=== PATIENT | female | born 1935 | race Caucasian/White ===

== ENCOUNTER 2017-01-14 07:27 | Inpatient (IN) ==
[2017-01-14] MEDS ORDERED: ONDANSETRON ODT 4 MG TABLET SL ONE (08:08)
[2017-01-14] MEDS ORDERED: LACTATED RINGERS 1,000 ML IV ONE (08:08)
--- NOTE | 2017-01-14 08:44 | Emergency Department Note ---
Nausea/Vomiting/Diarrhea HPI - General Chief complaint: Nausea/Vomiting/Diarrhea Stated complaint: Diarrhea, nausea Time Seen by Provider: 01/14/17 08:40 Source: EMS Mode of arrival: EMS Limitations: no limitations - History of Present Illness HPI Narrative: This very pleasant 81-year-old female comes to the emergency room with primary complaint of diarrhea for a day. She took some orange juice yesterday and blames it somewhat on this and then taking her blood pressure medicine afterwards. It was sudden in onset. She has had 6-8 episodes. She has had some incontinence because of this including even darkening her panty liners which she uses chronically because of urinary incontinence. She took 3- 4 tablets of Pepto-Bismol yesterday this has caused darkness to her stools. She also took 1 tablespoon of Kaopectate last night which allowed her to be able to take her medications and for them hopefully not to go straight through her. She has occasional chills but no fevers. She has some nausea with this and some mild right upper quadrant abdominal discomfort. This was not obvious to her until examination and it was mild. - Related Data Home Medications Medication Instructions Recorded Confirmed Atenolol [Tenormin] 25 mg PO DAILY 06/19/15 12/29/16 Losartan Potassium [Cozaar] 100 mg PO DAILY 06/19/15 12/29/16 cloNIDine HCL [Kapvay] 0.1 mg PO BID 06/19/15 12/29/16 metFORMIN [Glucophage] 500 mg PO DAILY 08/13/15 12/29/16 blood sugar diagnostic strips See Dose Instructions .ROUTE 12/28/16 12/29/16 .MEDSUPPLY #20 each clorazepate dipotassium 3.75 mg 3.75 mg PO BID PRN tab 12/28/16 12/29/16 tablet lancets See Dose Instructions .ROUTE 12/28/16 12/29/16 .MEDSUPPLY #50 each pantoprazole 20 mg tablet,delayed 20 mg PO QDAY 12/28/16 12/29/16 release acetaminophen 325 mg tablet 325 mg PO .COMPLEX PRN tab 12/29/16 12/29/16 folic acid See Label Instructions PO QDAY 12/29/16 12/29/16 Allergies Allergy/AdvReac Type Severity Reaction Status Date / Time ciprofloxacin [From Cipro] Allergy Intermediate Diarrhea Verified 01/14/17 07:30 codeine Allergy Intermediate unknown Verified 01/14/17 07:30 Erythromycin Base Allergy Intermediate Diarrhea Verified 01/14/17 07:30 Neomycin Allergy Intermediate Diarrhea Verified 01/14/17 07:30 nitrofurantoin Allergy Intermediate Diarrhea Verified 01/14/17 07:30 Penicillins Allergy Intermediate Diarrhea Verified 01/14/17 07:30 Sulfa (Sulfonamide Allergy Intermediate Diarrhea Verified 01/14/17 07:30 Antibiotics) amlodipine Allergy Unknown Unknown Verified 01/14/17 07:30 Cortisone Allergy Unknown Unknown Verified 01/14/17 07:30 iodine Allergy Unknown Unknown Verified 01/14/17 07:30 lisinopril Allergy Unknown Unknown Verified 01/14/17 07:30 atorvastatin [From Lipitor] AdvReac Intermediate muscle Verified 01/14/17 07:30 cramps simvastatin AdvReac Intermediate muscle Verified 01/14/17 07:30 cramps Review of Systems Constitutional: Reports: as per HPI. Denies: fever, sweats ENT ED: Reports: other (Has become a little hoarse and she states that this is due to the possible side effect of her clonidine.) Cardiovascular: Denies: chest pain, palpitations, edema Respiratory: Denies: cough, shortness of breath, wheezes Gastrointestinal: Reports: as per HPI, heart burn Genitourinary: Reports: frequency (This is chronic and normal for her.). Denies : dysuria Musculoskeletal: Reports: joint pain (In her arms from previous injuries and falls.). Denies: back pain Neurological: Reports: headache (Has a few headaches.), weakness, dizziness (A few times.), other (Sleepy from the clonidine. Also has become shaky. She normally uses a walker and/or a cane.) Past Medical History - Past Medical History Medical history: Reports: diabetes, GERD, hypertension, osteoporosis, other ( Peptic ulcer disease). 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 Absent: tenderness, lymphadenopathy, thyromegaly Respiratory: Present: normal lung sounds bilaterally. Absent: respiratory distress, wheezes, stridor Cardiovascular: Present: regular rate, normal rhythm. Absent: systolic murmur, diastolic murmur Abdominal: Present: soft, tenderness (Trace or very mild discomfort to palpation in the right upper quadrant.). Absent: distention, guarding, rebound , rigidity Extremities: Present: pretibial edema (Trace in amount.). Absent: pedal edema Neurological: Present: alert, oriented X3 Psychiatric: Present: normal affect, normal mood Skin: Present: warm, dry Course Vital Signs Temperature 98.3 F 01/14/17 07:29 Pulse Rate 73 01/14/17 07:29 Respiratory Rate 16 01/14/17 07:29 Blood Pressure 184/82 01/14/17 07:29 Pulse Oximetry (%) 94 01/14/17 07:29 Temperature 98.3 F 01/14/17 07:29 Pulse Rate 73 01/14/17 07:29 Respiratory Rate 16 01/14/17 07:29 Blood Pressure 184/82 01/14/17 07:29 Pulse Oximetry (%) 94 01/14/17 07:29 Nausea/Vomiting/Diarrhea - MDM Narrative Medical decision making narrative: At risk for some dehydration due to her poor oral intake from nausea and episodes of diarrhea. Probably acute infectious diarrhea or possibly mild food poisoning. Will do labs and ondansetron. Consider Imodium. She has no recent antibiotics or risk for C. difficile. Care transferred to Dr. Rodriguez - Lab Data Result diagrams: 01/14/17 08:18 01/14/17 08:18 Lab Results 01/14/17 01/14/17 Range/Units 08:18 08:18 WBC 7.9 (4.5-11.0) K/mcL RBC 5.26 H (4.00-5.20) M/mcL Hgb 14.9 (12.0-15.0) g/dL Hct 44.0 (36.0-48.0) % MCV 83.5 (80.0-100.0) fL MCH 28.2 (26.0-34.0) pg MCHC 33.8 (31.0-36.0) g/dL RDW 15.4 H (11.5-14.5) % Plt Count 194 (140-440) K/mcL MPV 8.2 (7.4-10.4) fL Gran % 79.0 H (38.0-78.0) % Lymph % (Auto) 10.9 L (15.5-49.0) % [place] % (Auto) 8.7 (1.0-12.0) % Eos % (Auto) 1.1 (0.0-7.0) % Baso % (Auto) 0.3 (0.0-2.0) % Gran # 6.3 (1.8-8.0) K/mcL Lymph # (Auto) 0.9 L (1.5-4.8) K/mcL [place] # (Auto) 0.7 (0.1-0.9) K/mcL Eos # (Auto) 0.1 (0.0-0.7) K/mcL Baso # (Auto) 0 (0.0-0.3) K/mcL Sodium 127 L (133-145) mmol/L Potassium 4.1 (3.3-5.1) mmol/L Chloride 89 L (96-108) mmol/L Carbon Dioxide 25 (22-30) mmol/L Anion Gap 13.0 (8-16) BUN 17 (8-23) mg/dl Creatinine 0.7 (0.6-1.1) mg/dl GFR Calculation 80 Glucose 146 H (70-105) mg/dL Calcium 9.8 (8.6-10.4) mg/dl Total Bilirubin 0.4 (0.0-1.0) mg/dL AST 27 (0-37) U/l ALT 17 (0-40) U/l Alkaline Phosphatase 85 (39-117) U/L C-Reactive Protein 0.6 (0.0-0.8) mg/dl Total Protein 8.1 (5.9-8.4) gm/dL Albumin 4.2 (3.2-5.2) gm/dL Globulin 3.9 H (2.2-3.7) gm/dL Albumin/Globulin Ratio 1.1 (1.0-2.3) Disposition Pt seen by FEATHERER/PA only: No Disposition: Still a Patient Referrals: Brenda Hardin MD [Primary Care Provider] -
[2017-01-14 09:13] LABS: Basophils # (Auto) 0 K/mcL (0.0-0.3); Basophils % (Auto) 0.3 % (0.0-2.0); Eosinophils # (Auto) 0.1 K/mcL (0.0-0.7); Eosinophils % (Auto) 1.1 % (0.0-7.0); Lymphocytes # (Auto) 0.9 K/mcL (1.5-4.8); Lymphocytes % (Auto) 10.9 % (15.5-49.0); Mean Cell Volume 83.5 fL (80.0-100.0); Mean Corpuscular HGB Conc 33.8 g/dL (31.0-36.0); Mean Corpuscular Hemoglobin 28.2 pg (26.0-34.0); Monocytes # (Auto) 0.7 K/mcL (0.1-0.9); Monocytes % (Auto) 8.7 % (1.0-12.0); Platelet Count 194 K/mcL (140-440); RBC 5.26 M/mcL (4.00-5.20); Red Cell Distribution Width 15.4 % (11.5-14.5)
[2017-01-14 09:37] LABS: ALT/SGPT 17 U/l (0-40); Albumin 4.2 gm/dL (3.2-5.2); Albumin/Globulin Ratio 1.1 (1.0-2.3); Alkaline Phosphatase 85 U/L (39-117); Blood Urea Nitrogen 17 mg/dl (8-23); C-Reactive Protein 0.6 mg/dl (0.0-0.8)
[2017-01-14] MEDS ORDERED: LOPERAMIDE 2 MG CAPSULE PO ONE (09:52)
[2017-01-14] MEDS ORDERED: PROCHLORPERAZINE 10 MG/2 ML VIAL IV ONE (10:40)
[2017-01-14] MEDS ORDERED: 0.9 % SODIUM CHLORIDE 1,000 ML IV SCH (10:45)
[2017-01-14] MEDS: LOPERAMIDE 2 MG CAPSULE PO PRN ×3 (10:46→12:19)
[2017-01-14] MEDS ORDERED: PROCHLORPERAZINE 10 MG/2 ML VIAL ONE (10:49)
[2017-01-14] MEDS ORDERED: LOPERAMIDE 2 MG CAPSULE PO PRN (11:21)
[2017-01-14] MEDS ORDERED: VANCOMYCIN ORAL SOL 1,000 MG/10 ML BOTTLE PO SCH (13:00)
[2017-01-14] MEDS ORDERED: VANCOMYCIN 250 MG CAPSULE PO SCH (13:00)
[2017-01-14] MEDS ORDERED: oxyCODONE HCL 5 MG TABLET PO PRN (14:07)
[2017-01-14] MEDS ORDERED: ALBUTEROL SULFATE 2.5 MG/3 ML NEBULIZER NEB PRN (14:07)
[2017-01-14] MEDS ORDERED: DEXTROSE 31 GM ORAL.SUSP PO PRN (14:07)
[2017-01-14] MEDS ORDERED: ONDANSETRON 4 MG/2 ML VIAL IV PRN (14:07)
[2017-01-14] MEDS ORDERED: CLORAZEPATE 3.75 MG TABLET PO PRN (14:07)
[2017-01-14] MEDS ORDERED: DEXTROSE 50% 50 ML VIAL IV PRN (14:07)
[2017-01-14] MEDS ORDERED: NALOXONE HCL 0.4 MG/ML VIAL IV PRN (14:07)
[2017-01-14] MEDS ORDERED: ACETAMINOPHEN 325 MG TABLET PO PRN (14:07)
[2017-01-14] MEDS: 0.9 % SODIUM CHLORIDE 10 ML SYRINGE IV SCH ×2 (14:30→22:49)
[2017-01-14] MEDS: 0.9 % SODIUM CHLORIDE 1,000 ML IV SCH (14:30)
--- NOTE | 2017-01-14 14:38 | Internal Med History&Physical ---
Medical - H&P: HPI Patient information: Note initiated : 01/14/17 at 2:32 pm Service Date, if different from initiated Date: [] Patient: Margy Teixeira 81 y/o F admitted on 01/14/17 for Diarrhea, nausea. Chief Complaint: [] History of present illness: Ms. Teixeira is a 81 year old Female who presents to the ER today with complaints of weakness, nausea, vomiting and diarrhea The patient notes she had UTI approximately 1 month ago and was on antibiotics for same She drank some orange juice yesterday and and started having cramps in the abdomen, associated with significant diarrhea, unable to quantify, she also had nausea all day yesterday and some vomiting today. She has had cramps in her abdomen and also in her legs. The patient was weak and therefore presented to the ER for further evaluation the patient denies any fever, chills or rigors, has chr headaches, no chest pain or shortness of breath, patient has no acute joint pains, skin rashes. admits to chr depression and anxiety no other acute issue preorted Pt is a poor history provider and, living by self for last 30 yrs, able to carry out ADL, has some memory issues but not significantly affecting life. In the ER the patient was stable, VSS, Labs showed low sodium and cl, had cdiff positive. Admitted to the hospital for further management All systems: reviewed and no additional remarkable complaints except as stated ( as per HPI) Medical - H&P: [facility] Medical history: Medical History (Last Updated 12/28/16 @ 07:49 by Erna Bhatt) Headache (Chronic) Blurred vision (Chronic) Metatarsalgia (Chronic) Hearing loss (Chronic) Allergic rhinitis (Chronic) Generalized anxiety disorder (Chronic) Osteoarthritis of right knee (Chronic) IBS (irritable bowel syndrome) (Chronic) Diverticular disease (Chronic) GERD (gastroesophageal reflux disease) (Chronic) Edema, lower extremity (Chronic) Hyperlipidemia, mixed (Chronic) Chronic hyponatremia (Chronic) Type 2 diabetes mellitus, controlled, with renal complications (Chronic) Increased frequency of urination (Chronic) Anxiety (Chronic) HTN (hypertension) (Chronic) Diverticulitis (Chronic) Contusion (Chronic) Dehydration (Chronic) Vertigo (Chronic) Hyponatremia (Chronic) Hypertension (Chronic) Acute anxiety (Chronic) Surgical history: Past Surgical History (Last Updated 12/28/16 @ 07:49 by Erna Bhatt) History of D&C (Chronic) History of appendectomy (Chronic) History of cholecystectomy (Chronic) History of tonsillectomy and adenoidectomy (Chronic) Pertinent family history: Family History (Last Updated 12/28/16 @ 08:03 by Erna Bhatt) Mother Diabetes Medical - H&P: Meds Home Medications Medication Instructions Recorded Confirmed Type Atenolol [Tenormin] 25 mg PO DAILY 06/19/15 01/14/17 History Losartan Potassium [Cozaar] 100 mg PO DAILY 06/19/15 01/14/17 History cloNIDine HCL [Kapvay] 0.1 mg PO BID 06/19/15 01/14/17 History metFORMIN [Glucophage] 500 mg PO DAILY 08/13/15 01/14/17 History blood sugar diagnostic strips See Dose Instructions .ROUTE 12/28/16 12/29/16 History .MEDSUPPLY #20 each clorazepate dipotassium 3.75 mg 3.75 mg PO BID PRN tab 12/28/16 01/14/17 History tablet lancets See Dose Instructions .ROUTE 12/28/16 12/29/16 History .MEDSUPPLY #50 each pantoprazole 20 mg tablet,delayed 20 mg PO QDAY 12/28/16 01/14/17 History release acetaminophen 325 mg tablet 325 mg PO .COMPLEX PRN tab 12/29/16 12/29/16 History folic acid 1 mg PO QDAY 12/29/16 01/14/17 History Allergies Allergy/AdvReac Type Severity Reaction Status Date / Time ciprofloxacin [From Cipro] Allergy Intermediate Diarrhea Verified 01/14/17 07:30 codeine Allergy Intermediate unknown Verified 01/14/17 07:30 Erythromycin Base Allergy Intermediate Diarrhea Verified 01/14/17 07:30 Neomycin Allergy Intermediate Diarrhea Verified 01/14/17 07:30 nitrofurantoin Allergy Intermediate Diarrhea Verified 01/14/17 07:30 Penicillins Allergy Intermediate Diarrhea Verified 01/14/17 07:30 Sulfa (Sulfonamide Allergy Intermediate Diarrhea Verified 01/14/17 07:30 Antibiotics) amlodipine Allergy Unknown Unknown Verified 01/14/17 07:30 Cortisone Allergy Unknown Unknown Verified 01/14/17 07:30 iodine Allergy Unknown Unknown Verified 01/14/17 07:30 lisinopril Allergy Unknown Unknown Verified 01/14/17 07:30 atorvastatin [From Lipitor] AdvReac Intermediate muscle Verified 01/14/17 07:30 cramps simvastatin AdvReac Intermediate muscle Verified 01/14/17 07:30 cramps Medical - H&P: Exam - Constitutional Vitals: Temp Pulse Resp BP Pulse Ox 98.3 F 76 16 159/72 94 01/14/17 07:29 01/14/17 11:47 01/14/17 07:29 01/14/17 11:47 01/14/17 11:47 Medical - H&P: Reslt - Labs CBC & Chem 7: 01/14/17 08:18 01/14/17 08:18 Labs: Short CBC 01/14/17 Range/Units 08:18 WBC 7.9 (4.5-11.0) K/mcL Hgb 14.9 (12.0-15.0) g/dL Hct 44.0 (36.0-48.0) % Plt Count 194 (140-440) K/mcL BMP 01/14/17 08:18 Sodium 127 L Potassium 4.1 Chloride 89 L Carbon Dioxide 25 BUN 17 Creatinine 0.7 Glucose 146 H Calcium 9.8 Liver Function 01/14/17 Range/Units 08:18 Total Bilirubin 0.4 (0.0-1.0) mg/dL AST 27 (0-37) U/l ALT 17 (0-40) U/l Alkaline Phosphatase 85 (39-117) U/L Albumin 4.2 (3.2-5.2) gm/dL Medical - H&P: A/P - Narrative A/P Narrative: A/P Acute Cdiff diarrhea HTN HLD Dehydration Nausea and Vomiting Diabetes Anxiety/ Depression Plan Admit to med surg IV fluids PO vancomyucin for cdiff hold off on loperamide, continue atenolol, hold other bp meds sliding scale insulin for now, hold oral meds for diabetes. prn zofran for nausea DVT hep Full code Social History - Social History marital status: occupational status: retired - Exercise physical activity: none - Tobacco smoking status: Never smoker - Alcohol alcohol intake frequency: does not drink - Substance use substance use type: does not use
[2017-01-14] MEDS: VANCOMYCIN ORAL SOL 1,000 MG/10 ML BOTTLE PO SCH ×2 (17:21→21:01)
[2017-01-14] MEDS: INSULIN LISPRO 1 UNIT/0.01 ML UNIT SQ SCH ×2 (17:23→21:00)
[2017-01-14] MEDS: cloNIDine HCL 0.1 MG TABLET PO SCH (21:00)
[2017-01-15] MEDS: 0.9 % SODIUM CHLORIDE 1,000 ML IV SCH ×3 (00:21→16:14)
[2017-01-15] MEDS: 0.9 % SODIUM CHLORIDE 10 ML SYRINGE IV SCH ×3 (05:05→21:48)
[2017-01-15 05:59] LABS: Basophils # (Auto) 0 K/mcL (0.0-0.3); Basophils % (Auto) 0.5 % (0.0-2.0); Eosinophils # (Auto) 0.1 K/mcL (0.0-0.7); Eosinophils % (Auto) 1.7 % (0.0-7.0); Granulocytes % (Auto) 61.7 % (38.0-78.0); Lymphocytes # (Auto) 1.4 K/mcL (1.5-4.8); Lymphocytes % (Auto) 22.3 % (15.5-49.0); Mean Cell Volume 84.6 fL (80.0-100.0); Mean Corpuscular HGB Conc 33.8 g/dL (31.0-36.0); Mean Corpuscular Hemoglobin 28.6 pg (26.0-34.0); Monocytes # (Auto) 0.9 K/mcL (0.1-0.9); Monocytes % (Auto) 13.8 % (1.0-12.0); Platelet Count 153 K/mcL (140-440); Red Cell Distribution Width 15.5 % (11.5-14.5)
[2017-01-15 06:17] LABS: ALT/SGPT 13 U/l (0-40); Albumin 3.2 gm/dL (3.2-5.2); Albumin/Globulin Ratio 1.1 (1.0-2.3); Alkaline Phosphatase 63 U/L (39-117); Bilirubin,Direct < 0.2 mg/dL (0.0-0.3); Blood Urea Nitrogen 13 mg/dl (8-23); Gamma Glutamyl Transpeptidase 14 U/L (5-36); Magnesium 1.6 mg/dL (1.6-2.5); Uric Acid 4.9 mg/dL (2.5-8.0)
[2017-01-15] MEDS ORDERED: MAGNESIUM SULFATE 2 GM/50 ML BAG IV ONE (07:09)
[2017-01-15] MEDS ORDERED: POTASSIUM CHLORIDE 40 MEQ in DEXTROSE 5% IN WATER 500 ML IV ONE (07:09)
[2017-01-15] MEDS: PANTOPRAZOLE 40 MG TABLET PO SCH (07:30)
[2017-01-15] MEDS: INSULIN LISPRO 1 UNIT/0.01 ML UNIT SQ SCH ×4 (07:32→21:48)
[2017-01-15] MEDS: ENOXAPARIN 40 MG/0.4 ML SYRINGE SQ SCH (09:58)
[2017-01-15] MEDS: VANCOMYCIN ORAL SOL 1,000 MG/10 ML BOTTLE PO SCH ×4 (09:58→20:29)
[2017-01-15] MEDS: FOLIC ACID 1 MG TABLET PO SCH (09:59)
[2017-01-15] MEDS: cloNIDine HCL 0.1 MG TABLET PO SCH ×2 (09:59→20:29)
[2017-01-15] MEDS: ATENOLOL 50 MG TABLET PO SCH (09:59)
[2017-01-15] MEDS ORDERED: PNEUMOCOCCAL 23-VAL P-SAC VAC 0.5 ML VIAL IM ONE (10:00)
--- NOTE | 2017-01-15 10:32 | Internal Med Progress Note ---
Medical - PN: Subj Patient information: Note initiated : 01/15/17 at 10:29 am Service Date, if different from initiated Date: [] Patient: Margy Teixeira 81 y/o F admitted on 01/14/17 for Diarrhea, nausea. Chief Complaint: [] Interval history: Ms. Teixeira is a 81 year old Female who presents to the ER today with complaints of weakness, nausea, vomiting and diarrhea The patient notes she had UTI approximately 1 month ago and was on antibiotics for same She drank some orange juice yesterday and and started having cramps in the abdomen, associated with significant diarrhea, unable to quantify, she also had nausea all day yesterday and some vomiting today. She has had cramps in her abdomen and also in her legs. The patient was weak and therefore presented to the ER for further evaluation the patient denies any fever, chills or rigors, has chr headaches, no chest pain or shortness of breath, patient has no acute joint pains, skin rashes. admits to chr depression and anxiety no other acute issue preorted Pt is a poor history provider and, living by self for last 30 yrs, able to carry out ADL, has some memory issues but not significantly affecting life. In the ER the patient was stable, VSS, Labs showed low sodium and cl, had cdiff positive. Admitted to the hospital for further management January 15 Patient seen examined doing well, no more nausea, vomiting or dairrhea, feels better, urine cx is positive for uti, started on rocehin, tolerating po well. Pertinent ROS: Denies headache, dizziness Denies chest pain, palpitations Denies cough or shortness of breath Denies abdominal pain, nausea or vomiting. - Constitutional Vitals: Vital Signs Temp Pulse Resp BP Pulse Ox 98.2 F 74 18 144/61 93 01/15/17 07:42 01/15/17 04:00 01/15/17 07:42 01/15/17 07:42 01/15/17 07:42 Period Temp Pulse Resp BP Sys/Cheng Pulse Ox Last 24 Hr 98.2 F-99.8 F 71-89 18-20 140-181/61-82 89-95 Intake and Output 01/14/17 01/15/17 01/15/17 21:59 05:59 13:59 Intake Total 120 / 120 1225 / 1225 Output Total 750 / 750 650 / 650 Balance -630 / -630 575 / 575 Weight 175 lb Intake & Output: Intake & Output 01/14/17 01/15/17 01/15/17 21:59 05:59 13:59 Intake Total 120 / 120 1225 / 1225 Output Total 750 / 750 650 / 650 Balance -630 / -630 575 / 575 Weight 175 lb Intake: IV 985 / 985 Sodium Chloride 0.9% 1,000 ml @ 985 / 985 100 mls/hr IV .Q10H NIRMALA Rx#: [id number] Oral 120 / 120 240 / 240 Output: Void Amount 750 / 750 650 / 650 Other: Meal Dinner Percent of Meal Consumed 50% Feeding Ability Assist with Tray Set Up # Voids 1 # Bowel Movements 1 Exam: Constitutional; Afebrile, cooperative, alert, not in distress. Eyes- No icterus, , No periorbital swelling Ears- Ext ear normal, hearing normal to conversation. Neck- Midline trachea, supple Respiratory system: Air Entry equal on both sides, No crackles or wheezing, no rhonchi. CVS- Rate rhythm regular, S1,S2 heard, no gallop, no rub. Abdomen- Soft nontender abdomen, no organomegaly, no tenderness, no guarding or rigidity, AREA COORDINATOR- AOOx3, moving all extremities, no gross focal deficit noted. Medical - PN: Obj Da - Labs CBC & Chem 7: 01/15/17 04:10 01/15/17 04:10 Labs: Abnormal Lab Results 01/15/17 01/15/17 01/14/17 04:10 04:10 08:18 RBC RDW 15.5 H Gran % Lymph % (Auto) [place] % (Auto) 13.8 H Lymph # (Auto) 1.4 L Sodium 127 L Chloride 89 L Glucose 146 H Calcium 8.0 L Phosphorus 2.1 L Globulin 3.9 H 01/14/17 08:18 RBC 5.26 H RDW 15.4 H Gran % 79.0 H Lymph % (Auto) 10.9 L [place] % (Auto) Lymph # (Auto) 0.9 L Sodium Chloride Glucose Calcium Phosphorus Globulin Meds: Medications Acetaminophen (Tylenol) 650 mg PO Q6HP PRN PRN Reason: PAIN/FEVER > 101 Albuterol Sulfate (Ventolin) 2.5 mg NEB Q2HP PRN PRN Reason: Shortness Of Breath Atenolol (Tenormin) 25 mg PO DAILY [facility] Last Admin: 01/15/17 09:59 Dose: 25 mg Ceftriaxone Sodium (Rocephin) 2 gm IV Q24H [facility] Clonidine HCl (Catapres) 0.1 mg PO BID [facility] Last Admin: 01/15/17 09:59 Dose: 0.1 mg Clorazepate Dipotassium (Tranxene) 3.75 mg PO BID PRN PRN Reason: Anxiety Dextrose (Dextrose 50%) 0 ml IV UD PRN PRN Reason: Hypoglycemia Diagnostic Test (Pha) (Accu-Chek) 1 each FS ACHS [facility] Last Admin: 01/15/17 07:31 Dose: 1 each Enoxaparin Sodium (Lovenox) 40 mg SQ DAILY [facility] Last Admin: 01/15/17 09:58 Dose: 40 mg Folic Acid (Folic Acid) 1 mg PO DAILY [facility] Last Admin: 01/15/17 09:59 Dose: 1 mg Glucose (Insta-Glucose) 15 gm PO PRN PRN PRN Reason: Hypoglycemia Sodium Chloride (Sodium Chloride 0.9%) 1,000 mls @ 100 mls/hr IV .Q10H [facility] Stop: 01/15/17 20:06 Last Admin: 01/15/17 00:21 Dose: 100 mls/hr Potassium Chloride 40 meq/ (Dextrose) 520 mls @ 130 mls/hr IV ONCE ONE Stop: 01/15/17 11:08 Last Admin: 01/15/17 08:16 Dose: 130 mls/hr Insulin Human Lispro (Humalog) 0 unit SQ [facility] PRN Reason: Protocol Last Admin: 01/15/17 07:32 Dose: Not Given Naloxone HCl (Narcan) 0.1 mg IV Q2MIN PRN PRN Reason: Opiate Reversal Ondansetron HCl (Zofran) 4 mg IV Q6HP PRN PRN Reason: Nausea And Vomiting Oxycodone HCl (Roxicodone) 5 mg PO Q4HP PRN PRN Reason: Pain Pantoprazole Sodium (Protonix) 40 mg PO QAMAC [facility] Last Admin: 01/15/17 07:30 Dose: 40 mg Sodium Chloride (Saline Flush) 10 ml IV Q8 [facility] Last Admin: 01/15/17 05:05 Dose: Not Given Vancomycin HCl (Vancomycin Oral Bette) 250 mg PO QID NIRMALA Last Admin: 01/15/17 09:58 Dose: 250 mg Medical - PN: A/P - Time Spent With Patient Total time spent is greater than 50% in coordination of care (as documented) at patient's floor/unit and/or counseling patient: - Narrative A/P Narrative: A/P Acute Cdiff diarrhea- improving Hyponatremia : due to dehyeration improving, continue gentlye hydrati UTI: on rocephin, await sensitivities HTN- resume home bp meds and see how she does. Dehydration/ Nausea and Vomiting- resolved. Diabetes: glucose ok on ssi Anxiety/ Depression tootie meds resumed. DVT hep Full code
[2017-01-15] MEDS: LOSARTAN 50 MG TABLET PO SCH (12:00)
[2017-01-15] MEDS: cefTRIAXone 2 GM VIAL IV SCH (12:00)
[2017-01-16 06:03] LABS: Basophils # (Auto) 0 K/mcL (0.0-0.3); Basophils % (Auto) 0.5 % (0.0-2.0); Eosinophils # (Auto) 0.1 K/mcL (0.0-0.7); Eosinophils % (Auto) 2.6 % (0.0-7.0); Granulocytes % (Auto) 57.7 % (38.0-78.0); Lymphocytes # (Auto) 1.5 K/mcL (1.5-4.8); Mean Corpuscular HGB Conc 33.5 g/dL (31.0-36.0); Mean Corpuscular Hemoglobin 28.5 pg (26.0-34.0); Monocytes # (Auto) 0.7 K/mcL (0.1-0.9); Monocytes % (Auto) 12.2 % (1.0-12.0); Platelet Count 166 K/mcL (140-440); RBC 4.55 M/mcL (4.00-5.20); Red Cell Distribution Width 15.9 % (11.5-14.5)
[2017-01-16 06:27] LABS: ALT/SGPT 15 U/l (0-40); Albumin 3.5 gm/dL (3.2-5.2); Albumin/Globulin Ratio 1.1 (1.0-2.3); Alkaline Phosphatase 73 U/L (39-117); Bilirubin,Direct < 0.2 mg/dL (0.0-0.3); Blood Urea Nitrogen 11 mg/dl (8-23); Gamma Glutamyl Transpeptidase 18 U/L (5-36); Uric Acid 3.8 mg/dL (2.5-8.0)
[2017-01-16] MEDS: 0.9 % SODIUM CHLORIDE 10 ML SYRINGE IV SCH ×2 (07:44→15:03)
[2017-01-16] MEDS: INSULIN LISPRO 1 UNIT/0.01 ML UNIT SQ SCH ×2 (07:44→11:53)
[2017-01-16] MEDS: PANTOPRAZOLE 40 MG TABLET PO SCH (07:44)
[2017-01-16] MEDS: LOSARTAN 50 MG TABLET PO SCH (09:39)
[2017-01-16] MEDS: ENOXAPARIN 40 MG/0.4 ML SYRINGE SQ SCH (09:39)
[2017-01-16] MEDS: ATENOLOL 50 MG TABLET PO SCH (09:40)
[2017-01-16] MEDS: cloNIDine HCL 0.1 MG TABLET PO SCH (09:40)
[2017-01-16] MEDS: FOLIC ACID 1 MG TABLET PO SCH (09:40)
[2017-01-16] MEDS: cefTRIAXone 2 GM VIAL IV SCH (10:42)
[2017-01-16] MEDS: VANCOMYCIN ORAL SOL 1,000 MG/10 ML BOTTLE PO SCH ×2 (10:42→14:23)
--- NOTE | 2017-01-16 10:57 | Discharge Summary ---
Medical - DS: Prov Patient information: Note initiated : 01/16/17 at 10:52 am Service Date, if different from initiated Date: [] Patient: Margy Teixeira 81 y/o F admitted on 01/14/17 for Diarrhea, nausea. Chief Complaint: [] Date of admission: 01/14/17 13:50 Discharge date: 01/16/17 Primary care physician: Brenda Hardin Admitting clinician: Anamaria Dinero Consults: 01/14/17 12:47 Consult to Physician [CONS] Stat Comment: Consulting Provider: Anamaria Dinero Reason For Exam: Physician to Consult Discharging clinician: Anamaria Dinero Medical - DS: Meds - Discharge Medications Prescriptions: RX: Cephalexin [Keflex] 500 mg PO BID #10 cap RX: Vancomycin [Vancocin] 125 mg PO QID #56 cap Active and Home Medications: Home Medications Atenolol [Tenormin] 25 mg PO DAILY 06/19/15 [History Confirmed 01/14/17 Last Taken 01/13/17] Losartan Potassium [Cozaar] 100 mg PO DAILY 06/19/15 [History Confirmed Last Taken 01/13/17] cloNIDine HCL [Kapvay] 0.2 mg PO BID 06/19/15 [History Confirmed 01/14/17 Last Taken 01/13/17 20:00] metFORMIN [Glucophage] 500 mg PO QAC 08/13/15 [History Confirmed 01/15/17 Last Taken 01/13/17] blood sugar diagnostic strips See Dose Instructions .ROUTE .MEDSUPPLY #20 each 12/28/16 [History Confirmed 12/29/16 Last Taken 01/13/17] clorazepate dipotassium 3.75 mg tablet 3.75 mg PO BID PRN tab 12/28/16 [ History Confirmed 01/14/17 Last Taken Unknown] lancets See Dose Instructions .ROUTE .MEDSUPPLY #50 each 12/28/16 [History Confirmed 12/29/16 Last Taken Unknown] pantoprazole 20 mg tablet,delayed release 20 mg PO QPMAC 12/28/16 [History Confirmed 01/15/17 Last Taken Unknown] folic acid 1 mg PO QDAY 12/29/16 [History Confirmed 01/14/17 Last Taken 01/13/17 ] Medical - DS: Hosp Hospital course: Ms. Teixeira is a 81 year old Female who presents to the ER today with complaints of weakness, nausea, vomiting and diarrhea. The patient notes she had UTI approximately 1 month ago and was on antibiotics for same She drank some orange juice yesterday and and started having cramps in the abdomen, associated with significant diarrhea, unable to quantify, she also had nausea all day yesterday and some vomiting today. She has had cramps in her abdomen and also in her legs. The patient was weak and therefore presented to the ER for further evaluation Pt is a poor history provider and, living by self for last 30 yrs, able to carry out ADL, has some memory issues but not significantly affecting life. In the ER the patient was stable, VSS, Labs showed low sodium and cl, had cdiff positive. Admitted to the hospital for further management The patient ua was also positive for UTI Cdiff: Treated with po vancomycin, patient responded to treatment very well, she will complete 14 day treatment of po vancomycin. At the time of discharge the patient was back to her baseline, no nausea, vomiting or diarrhea reported. UTI: Urine cx positive for siddiqi sensitive UTI, will treat for 5 days with cephalexin 500mg bid. The rest of the stay in the hospiotal was uneventful, no changes in patients home medication list was done. The patient reported adequate support at home to help her recover.She will be discharged home with home PT. Discharge diagnosis: Cdiff colitis, UTI - Time Spent with Patient Total time spent providing and/or coordinating discharge services: Greater than 30 minutes Medical - DS: Exam - Constitutional Vitals: Vital Signs Temp Pulse Resp BP Pulse Ox 01/16/17 07:17 98.1 F 18 142/80 95 01/16/17 04:45 97.9 F 65 18 150/80 96 01/16/17 00:30 98.4 F 68 18 150/78 96 01/15/17 20:20 98.1 F 71 20 138/78 97 01/15/17 16:00 96.9 F L 66 16 145/95 98 01/15/17 13:50 93 01/15/17 11:43 97.6 F 20 140/86 92 Intake and Output 01/15/17 01/16/17 01/16/17 21:59 05:59 13:59 Intake Total 1090 / 1090 1250 / 1250 240 / 240 Output Total 1141 / 1141 700 / 700 950 / 950 Balance -51 / -51 550 / 550 -710 / -710 Intake: IV 50 / 50 1000 / 1000 Oral 1040 / 1040 250 / 250 240 / 240 Output: Urine Catheter Amount 100 / 100 Void Amount 1040 / 1040 700 / 700 950 / 950 # of times incontinent of urine Other: Meal Dinner Breakfast Percent of Meal Consumed 100% 100% Feeding Ability Assist with Tray Set Up # Voids 1 1 # Bowel Movements 1 Weight 168 lb 8 oz Additional comments: Constitutional; Afebrile, cooperative, alert, not in distress. Eyes- No icterus, , No periorbital swelling Ears- Ext ear normal, hearing normal to conversation. Neck- Midline trachea, supple Respiratory system: Air Entry equal on both sides, No crackles or wheezing, no rhonchi. CVS- Rate rhythm regular, S1,S2 heard, no gallop, no rub. Abdomen- Soft nontender abdomen, no organomegaly, no tenderness, no guarding or rigidity, SECRET CODE EXPERT- AOOx3, moving all extremities, no gross focal deficit noted. Medical - DS: Data Labs on day of discharge: Labs from last 24 hours 01/16/17 01/16/17 04:55 04:55 WBC 5.5 RBC 4.55 Hgb 13.0 Hct 38.7 MCV 85.0 MCH 28.5 MCHC 33.5 RDW 15.9 H Plt Count 166 MPV 8.3 Gran % 57.7 Lymph % (Auto) 27.0 [place] % (Auto) 12.2 H Eos % (Auto) 2.6 Baso % (Auto) 0.5 Gran # 3.2 Lymph # (Auto) 1.5 [place] # (Auto) 0.7 Eos # (Auto) 0.1 Baso # (Auto) 0 Sodium 131 L Potassium 4.1 Chloride 98 Carbon Dioxide 23 Anion Gap 10.0 BUN 11 Creatinine 0.8 GFR Calculation 68 Glucose 104 Uric Acid 3.8 Calcium 8.7 Phosphorus 1.8 L Magnesium 2.0 Total Bilirubin 0.2 Direct Bilirubin < 0.2 GGT 18 AST 28 ALT 15 Alkaline Phosphatase 73 Lactate Dehydrogenase 219 Total Protein 6.6 Albumin 3.5 Globulin 3.1 Albumin/Globulin Ratio 1.1 Triglycerides 100 Preliminary micro results at discharge 01/14/17 09:22 Urine Culture - Preliminary Urine - Clean Void Mid-Stream Gram negative bacillus Medical - DS: A/P - Patient/Caregiver Discharge Instructions Activity: increase activity as tolerated Diet: Cardiac, Consistent Carbohydrate Additional Instructions: Home with [facility]. [phone] The office will call to set up an appointment to come to your house. If you don't hear from them within 48 hours, give them a call. Follow up with PCP in 1 week TAke your antbiotics as prescribed Should your diarrhea recur, contact your pcp or come to the ER Come to the ER for fever, chest pains, shortness of breath or any other concerning symptom. - Follow up Plan Follow up with: Brenda Hardin MD [Primary Care Provider] - (Follow up with PCP as needed. ) Disposition: Home Health Service Prognosis: Fair Rehab Potential: Fair I certify that the patient requires SNF services: No Overall status at discharge: patient is progressing back to baseline
[2017-01-16] MEDS ORDERED: PNEUMOCOCCAL 23-VAL P-SAC VAC 0.5 ML VIAL IM ONE (14:30)
== END 2017-01-16 15:30 | disposition home health service (06) | DRG 372 ==
LOC: ED 07:27 → MEDSUR 13:45
PROVIDERS: ADMIT Internal Medicine; ATTEND Internal Medicine

== ENCOUNTER 2017-10-20 15:05 | Inpatient (IN) ==
--- NOTE | 2017-10-20 16:03 | Emergency Department Note ---
Nausea/Vomiting/Diarrhea HPI - General Chief complaint: Nausea/Vomiting/Diarrhea Stated complaint: Nausea/vomiting Time Seen by Provider: 10/20/17 15:07 Source: patient Mode of arrival: ambulatory Limitations: no limitations - History of Present Illness HPI Narrative: 82-year-old female presents with nausea 1 week. She has not been able to eat as much. She also has had a few episodes of diarrhea. She was seen at [facility] and was given an injection of antiemetics. She feels a lot better. She states she has been feeling weak and her neighbor said she seemed confused. She does not seem confused at this time. She has a history of chronic hyponatremia the lowest it has been is 123. She has never been this low before. She denies any vomiting. She also has hypertension. - Related Data Home Medications Medication Instructions Recorded Confirmed Losartan Potassium [Cozaar] 50 mg PO BID 06/19/15 10/20/17 metFORMIN [Glucophage] 500 mg PO [facility] 08/13/15 10/20/17 blood sugar diagnostic strips See Dose Instructions .ROUTE 12/28/16 12/29/16 .MEDSUPPLY #20 each lancets See Dose Instructions .ROUTE 12/28/16 12/29/16 .MEDSUPPLY #50 each pantoprazole 20 mg tablet,delayed 20 mg PO QPMAC 12/28/16 10/20/17 release folic acid 1 mg PO QDAY 12/29/16 10/20/17 Carvedilol [Coreg] 12.5 mg PO BIDCC 06/25/17 10/20/17 Clorazepate [Tranxene] 3.75 mg PO BIDP PRN 06/25/17 10/20/17 Acetaminophen [Tylenol] 325 mg PO Q4HP PRN 10/20/17 10/20/17 Cranberry Conc/Ascorbic Acid 2 each PO BID 10/20/17 10/20/17 [Cranberry 6,000 mg Softgel] Hydrochlorothiazide [Oretic] 25 mg PO DAILY 10/20/17 10/20/17 Multivit-Min/FA/Lycopen/Lutein 1 each PO DAILY 10/20/17 10/20/17 [Centrum Silver Tablet] Allergies Allergy/AdvReac Type Severity Reaction Status Date / Time codeine Allergy Intermediate unknown Verified 06/14/17 18:45 amlodipine Allergy Unknown Unknown Verified 06/14/17 18:45 Cortisone Allergy Unknown Unknown Verified 06/14/17 18:45 iodine Allergy Unknown Unknown Verified 06/14/17 18:45 lisinopril Allergy Unknown Unknown Verified 06/14/17 18:45 atorvastatin [From Lipitor] AdvReac Intermediate muscle Verified 06/14/17 18:45 cramps ciprofloxacin [From Cipro] AdvReac Intermediate Diarrhea Verified 06/28/17 07:50 Erythromycin Base AdvReac Intermediate Diarrhea Verified 06/28/17 07:50 Neomycin AdvReac Intermediate Diarrhea Verified 06/28/17 07:50 nitrofurantoin AdvReac Intermediate Diarrhea Verified 06/28/17 07:50 Penicillins AdvReac Intermediate Diarrhea Verified 06/28/17 07:50 simvastatin AdvReac Intermediate muscle Verified 06/14/17 18:45 cramps Sulfa (Sulfonamide AdvReac Intermediate Diarrhea Verified 06/28/17 07:50 Antibiotics) Review of Systems All systems ED: reviewed and negative except as stated. 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 D&C) Family history: Reports: non-contributory - Social History smoking status: Never smoker Alcohol use: Reports: None Drug use: Reports: none Physical Exam Limitations: no limitations General appearance: alert, in no apparent distress Head: atraumatic Eye: Present: normal appearance. Absent: conjunctival injection Neck: Present: normal inspection, full ROM Chest: Present: normal inspection, symmetric chest wall rise Respiratory: Present: normal lung sounds bilaterally Cardiovascular: Present: regular rate, normal heart sounds Abdominal: Present: soft, normal bowel sounds. Absent: tenderness Extremities: Present: normal inspection, full ROM Neurological: Present: alert, oriented X3, other (Patient is oriented but seems confused. She cannot comprehend that I admitting her into the hospital and that correcting her sodium takes time.) Psychiatric: Present: normal affect, normal mood Skin: Present: warm, dry, intact Course Vital Signs Temperature 98.1 F 10/20/17 15:06 Pulse Rate 66 10/20/17 15:06 Respiratory Rate 16 10/20/17 15:06 Blood Pressure 177/86 10/20/17 15:06 Pulse Oximetry (%) 98 10/20/17 15:06 Temperature 98.1 F 10/20/17 15:06 Pulse Rate 63 10/20/17 16:46 Respiratory Rate 15 10/20/17 16:46 Blood Pressure 185/88 10/20/17 16:46 Pulse Oximetry (%) 98 10/20/17 16:46 Nausea/Vomiting/Diarrhea - MDM Narrative Medical decision making narrative: Patient will be admitted for hyponatremia and hypo-hypokalemia - Lab Data Lab results reviewed: Yes I reviewed the patient's lab results. Result diagrams: 10/20/17 15:45 10/20/17 15:45 Lab Results 10/20/17 10/20/17 Range/Units 15:45 15:45 WBC 7.8 (4.5-11.0) K/mcL RBC 4.86 (4.00-5.20) M/mcL Hgb 13.7 (12.0-15.0) g/dL Hct 40.6 (36.0-48.0) % POC Hct 40.0 (36.0-48.0) % MCV 83.4 (80.0-100.0) fL MCH 28.1 (26.0-34.0) pg MCHC 33.7 (31.0-36.0) g/dL RDW 14.6 H (11.5-14.5) % Plt Count 196 (140-440) K/mcL MPV 8.0 (7.4-10.4) fL Gran % 73.1 (38.0-78.0) % Lymph % (Auto) 15.6 (15.5-49.0) % [place] % (Auto) 9.7 (1.0-12.0) % Eos % (Auto) 1.2 (0.0-7.0) % Baso % (Auto) 0.4 (0.0-2.0) % Gran # 5.7 (1.8-8.0) K/mcL Lymph # (Auto) 1.2 L (1.5-4.8) K/mcL [place] # (Auto) 0.8 (0.1-0.9) K/mcL Eos # (Auto) 0.1 (0.0-0.7) K/mcL Baso # (Auto) 0 (0.0-0.3) K/mcL POC Sodium 116 L* (133-145) mmol/L Sodium 115 L* (133-145) mmol/L POC Potassium 2.8 L* (3.3-5.1) mmol/L Potassium 3.1 L (3.3-5.1) mmol/L POC Chloride 78 L (96-108) mmol/L Chloride 77 L (96-108) mmol/L Carbon Dioxide 25 (22-30) mmol/L POC Total CO2 26 (22-30) mmol/L Anion Gap 13.0 (8-16) POC BUN 22 (8-23) mg/dl BUN 21 (8-23) mg/dl Creatinine 0.8 (0.6-1.1) mg/dl POC Creatinine 0.8 (0.6-1.1) mg/dl GFR Calculation 68 Glucose 123 H (70-105) mg/dL POC Glucose 118 H (70-105) mg/dL Calcium 9.6 (8.6-10.4) mg/dl POC WB Ioniz Calcium 1.15 L (1.16-1.32) mmol/L Total Bilirubin 0.5 (0.0-1.0) mg/dL AST 33 (0-37) U/l ALT 23 (0-40) U/l Alkaline Phosphatase 87 (39-117) U/L Total Protein 7.7 (5.9-8.4) gm/dL Albumin 4.3 (3.2-5.2) gm/dL Globulin 3.4 (2.2-3.7) gm/dL Albumin/Globulin Ratio 1.3 (1.0-2.3) Disposition Pt seen by OBIEE [employer] SOLUTION ARCHITECT/PA only: Yes Clinical Impression: Hypokalemia, Hyponatremia Disposition: Xfer As Inpt ([facility]) Condition: Fair Referrals: Brenda Hardin MD [Primary Care Provider] -
[2017-10-20 16:08] LABS: Basophils # (Auto) 0 K/mcL (0.0-0.3); Basophils % (Auto) 0.4 % (0.0-2.0); Eosinophils # (Auto) 0.1 K/mcL (0.0-0.7); Eosinophils % (Auto) 1.2 % (0.0-7.0); Granulocytes % (Auto) 73.1 % (38.0-78.0); Lymphocytes # (Auto) 1.2 K/mcL (1.5-4.8); Lymphocytes % (Auto) 15.6 % (15.5-49.0); Mean Cell Volume 83.4 fL (80.0-100.0); Mean Corpuscular HGB Conc 33.7 g/dL (31.0-36.0); Mean Corpuscular Hemoglobin 28.1 pg (26.0-34.0); Monocytes # (Auto) 0.8 K/mcL (0.1-0.9); Monocytes % (Auto) 9.7 % (1.0-12.0); Platelet Count 196 K/mcL (140-440); RBC 4.86 M/mcL (4.00-5.20); Red Cell Distribution Width 14.6 % (11.5-14.5)
[2017-10-20 16:22] LABS: ALT/SGPT 23 U/l (0-40); Albumin 4.3 gm/dL (3.2-5.2); Albumin/Globulin Ratio 1.3 (1.0-2.3); Alkaline Phosphatase 87 U/L (39-117); Blood Urea Nitrogen 21 mg/dl (8-23)
[2017-10-20] MEDS ORDERED: POTASSIUM CHLORIDE 20 MEQ TABLET PO ONE ×2 (17:37→21:38)
[2017-10-20] MEDS ORDERED: 0.9 % SODIUM CHLORIDE 1,000 ML IV SCH (17:45)
[2017-10-20] MEDS ORDERED: POTASSIUM CHLORIDE 10 MEQ TABLET PO ONE (17:46)
--- NOTE | 2017-10-20 18:21 | Internal Med History&Physical ---
Medical - H&P: HPI Patient information: Note initiated : 10/20/17 at 6:15 pm Service Date, if different from initiated Date: [] Patient: Margy Teixeira 82 y/o F admitted on for Nausea/vomiting. Chief Complaint: [] Nausea poor oral intake weakness Chief complaint: Nausea poor oral intake weakness History of present illness: Ms. Teixeira is a 82 year old F Reports last Tuesday she went on a regular restaurant afterwards she felt like she had food poisoning she developed nausea she did not vomit but she had severe nausea and and had diarrhea for the next couple days. She felt much weaker she had poor oral intake since then heard diarrhea since has improved however she is continued to have nausea and is continued to be weak and continued to have poor oral intake. She went to [facility] today. She received some anti-medics Zofran did feel better. Laboratory work was done which showed a hyponatremia worse than her baseline she was ~115. She does feel better after the medication her daughter in law did say that she seemed weaker and more lethargic prior but is waking up more. Next She does have hypertension and has had a change in blood pressure medication in the past 3 months. Sounds like she has been on multiple medications. She did see a bus driver supervisor several months ago who stopped some medications I believe at least clonidine among others and started on another medication. However she did develop some swelling and that medication was switched to hydrochlorothiazide. Thus she has been on hydrochlorothiazide for several months. In the ER she is noted to have a sodium of 115 potassium 3.1 chloride 77. Review of systems positive for nausea weakness malaise negative for headache fever chills chest pain coughing shortness of breath stomach pain she had episodes of diarrhea but has since resolved the past couple days remaining 10 point review of system review negative Review of systems: See above under HPI Medical - H&P: PMH Medical history: Diabetes hypertension chronic hyponatremia chronic kidney disease stage II anxiety GERD Surgical history: D&C appendectomy cholecystectomy tonsil and adenoidectomy Pertinent family history: Mother diabetes she does not know her father's medical history Social history: Denies alcohol smoking she uses a cane or walker to get around to lives by herself Medical - H&P: Meds Home Medications Medication Instructions Recorded Confirmed Type Losartan Potassium [Cozaar] 50 mg PO BID 06/19/15 10/20/17 History metFORMIN [Glucophage] 500 mg PO QAC 08/13/15 10/20/17 History blood sugar diagnostic strips See Dose Instructions .ROUTE 12/28/16 12/29/16 History .MEDSUPPLY #20 each lancets See Dose Instructions .ROUTE 12/28/16 12/29/16 History .MEDSUPPLY #50 each pantoprazole 20 mg tablet,delayed 20 mg PO QPMAC 12/28/16 10/20/17 History release folic acid 1 mg PO QDAY 12/29/16 10/20/17 History Carvedilol [Coreg] 12.5 mg PO BIDCC 06/25/17 10/20/17 History Clorazepate [Tranxene] 3.75 mg PO BIDP PRN 06/25/17 10/20/17 History Acetaminophen [Tylenol] 325 mg PO Q4HP PRN 10/20/17 10/20/17 History Cranberry Conc/Ascorbic Acid 2 each PO BID 10/20/17 10/20/17 History [Cranberry 6,000 mg Softgel] Hydrochlorothiazide [Oretic] 25 mg PO DAILY 10/20/17 10/20/17 History Multivit-Min/FA/Lycopen/Lutein 1 each PO DAILY 10/20/17 10/20/17 History [Centrum Silver Tablet] Allergies Allergy/AdvReac Type Severity Reaction Status Date / Time codeine Allergy Intermediate unknown Verified 06/14/17 18:45 amlodipine Allergy Unknown Unknown Verified 06/14/17 18:45 Cortisone Allergy Unknown Unknown Verified 06/14/17 18:45 iodine Allergy Unknown Unknown Verified 06/14/17 18:45 lisinopril Allergy Unknown Unknown Verified 06/14/17 18:45 atorvastatin [From Lipitor] AdvReac Intermediate muscle Verified 06/14/17 18:45 cramps ciprofloxacin [From Cipro] AdvReac Intermediate Diarrhea Verified 06/28/17 07:50 Erythromycin Base AdvReac Intermediate Diarrhea Verified 06/28/17 07:50 Neomycin AdvReac Intermediate Diarrhea Verified 06/28/17 07:50 nitrofurantoin AdvReac Intermediate Diarrhea Verified 06/28/17 07:50 Penicillins AdvReac Intermediate Diarrhea Verified 06/28/17 07:50 simvastatin AdvReac Intermediate muscle Verified 06/14/17 18:45 cramps Sulfa (Sulfonamide AdvReac Intermediate Diarrhea Verified 06/28/17 07:50 Antibiotics) Medical - H&P: Exam - Constitutional Vitals: Temp Pulse Resp BP Pulse Ox 98.1 F 63 15 185/88 98 10/20/17 15:06 10/20/17 16:46 10/20/17 16:46 10/20/17 16:46 10/20/17 16:46 Exam: General: Alert, Awake, No acute Distress HEENT: EOMI, atraumatic normocephalic mucous membranes CV: RRR, No murmurs, normal s1/s2 Pulm: Clear b/l, no wheezing/rhonchi/rales Abd: soft, nontender, +BS x4 Ext: no clubbing/cyanosis, trace edema Neuro: Alert, no focal deficits, moves all extremities, cranial nerves II through XII grossly intact sensations and strength intact bilateral upper lower Skin: warm/dry Medical - H&P: Reslt - Labs CBC & Chem 7: 10/20/17 15:45 10/20/17 15:45 Labs: Short CBC 10/20/17 Range/Units 15:45 WBC 7.8 (4.5-11.0) K/mcL Hgb 13.7 (12.0-15.0) g/dL Hct 40.6 (36.0-48.0) % Plt Count 196 (140-440) K/mcL BMP 10/20/17 15:45 Sodium 115 L* Potassium 3.1 L Chloride 77 L Carbon Dioxide 25 BUN 21 Creatinine 0.8 Glucose 123 H Calcium 9.6 Liver Function 10/20/17 Range/Units 15:45 Total Bilirubin 0.5 (0.0-1.0) mg/dL AST 33 (0-37) U/l ALT 23 (0-40) U/l Alkaline Phosphatase 87 (39-117) U/L Albumin 4.3 (3.2-5.2) gm/dL Medical - H&P: A/P - Narrative A/P Narrative: A: *Hyponatremia acute on chronic: Secondary to likely poor oral intake diarrhea hydrochlorothiazide *Hypokalemia: *Volume depletion: *Diabetes *Hypertension: Uncontrolled she has been on multiple variations over the past few months she could not say exactly what she has been on and what was switched *Chronic kidney disease stage II *Anxiety *GERD P: -Normal saline IV infusion at a maintenance rate with serial sodiums -Urine studies to r/o other etiology of hyponatremia -Antiemetics as needed -Sided scale insulin -Continue Coreg losartan she has room to titrate up on her Coreg will try to find out what other medication she is on in the past DC hydrochlorothiazide - - -ppx: ppx/home pepcid
[2017-10-20 18:34] LABS: Appearance,Urine CLEAR; Bacteria,Urine 0 /hpf (0); Bilirubin,Urine NEG (NEG); Color,Urine YELLOW; Glucose,Urine (UA) NEGATIVE (NEG); Leukocyte Esterase,Urine NEG /uL (NEG); Mucus,Urine FEW /hpf (0); Protein,Urine 30 mg/dL (NEG); Urine Amorphous Crystals FEW /hpf (0); Urine Blood NEG mg/dL (<0.03); Urine RBC < 1 /hpf (0-1); Urine Squamous Epithelial Cell 1 /hpf (0-4); Urine WBC < 1 /hpf (0-4); Urobilinogen,Urine NEG (NEG)
[2017-10-20] MEDS ORDERED: hydrALAZINE 20 MG/ML VIAL IV PRN (18:54)
[2017-10-20] MEDS ORDERED: DEXTROSE 50% 50 ML VIAL IV PRN (18:54)
[2017-10-20] MEDS ORDERED: ONDANSETRON 4 MG/2 ML VIAL IV PRN (18:54)
[2017-10-20] MEDS ORDERED: ACETAMINOPHEN 325 MG TABLET PO PRN (18:54)
[2017-10-20] MEDS ORDERED: CLORAZEPATE 3.75 MG PO PRN (18:54)
[2017-10-20] MEDS ORDERED: DEXTROSE 31 GM ORAL.SUSP PO PRN (18:54)
[2017-10-20] MEDS: 0.9 % SODIUM CHLORIDE 1,000 ML IV SCH (19:08)
[2017-10-20 19:30] LABS: Osmolality,Urine 310 mOsm/kg (80-1000)
[2017-10-20] MEDS: LOSARTAN 50 MG TABLET PO SCH (21:11)
[2017-10-20] MEDS: FAMOTIDINE 20 MG TABLET PO SCH (21:11)
[2017-10-20] MEDS: INSULIN LISPRO 1 UNIT/0.01 ML UNIT SQ SCH (21:11)
[2017-10-20 21:34] LABS: Blood Urea Nitrogen 18 mg/dl (8-23)
[2017-10-20] MEDS ORDERED: SODIUM CHLORIDE 3 % 200 ML IV SCH (21:45)
[2017-10-20] MEDS: 0.9 % SODIUM CHLORIDE 10 ML SYRINGE IV SCH (22:00)
[2017-10-21 01:26] LABS: Blood Urea Nitrogen 18 mg/dl (8-23)
[2017-10-21] MEDS ORDERED: POTASSIUM CHLORIDE 20 MEQ TABLET PO ONE (01:30)
[2017-10-21] MEDS ORDERED: POTASSIUM CHLORIDE 10 MEQ TABLET PO ONE (01:42)
[2017-10-21 05:45] LABS: ALT/SGPT 17 U/l (0-40); Albumin 3.7 gm/dL (3.2-5.2); Albumin/Globulin Ratio 1.4 (1.0-2.3); Alkaline Phosphatase 70 U/L (39-117); Bilirubin,Direct < 0.2 mg/dL (0.0-0.3); Blood Urea Nitrogen 18 mg/dl (8-23); Gamma Glutamyl Transpeptidase 16 U/L (5-36); Uric Acid 3.2 mg/dL (2.5-8.0)
[2017-10-21] MEDS: 0.9 % SODIUM CHLORIDE 1,000 ML IV SCH ×2 (05:50→14:56)
[2017-10-21] MEDS: 0.9 % SODIUM CHLORIDE 10 ML SYRINGE IV SCH ×4 (06:43→22:07)
[2017-10-21] MEDS: INSULIN LISPRO 1 UNIT/0.01 ML UNIT SQ SCH ×4 (07:06→20:39)
--- NOTE | 2017-10-21 07:29 | Internal Med Progress Note ---
Medical - PN: Subj Patient information: Note initiated : 10/21/17 at 7:19 am Service Date, if different from initiated Date: [] Patient: Margy Teixeira 82 y/o F admitted on 10/20/17 for Nausea/vomiting. Chief Complaint: [] Interval history: Doing much better this morning, no nausea this morning. Review of Systems: denies headache/fever/chills/nausea/vomiting/chest or abdominal pain/cough/ dyspnea/diarrhea. Otherwise see above. - Constitutional Vitals: Vital Signs Temp Pulse Resp BP Pulse Ox 98.3 F 49 L 16 128/59 96 10/21/17 04:11 10/20/17 22:17 10/21/17 04:11 10/21/17 04:11 10/21/17 04:11 Period Temp Pulse Resp BP Sys/Cheng Pulse Ox Last 24 Hr 97.9 F-98.3 F 49-68 15-21 121-201/47-171 96-100 Intake and Output 10/20/17 10/21/17 10/21/17 21:59 05:59 13:59 Intake Total 597 / 597 Output Total 525 / 525 325 / 325 Balance 72 / 72 -325 / -325 Weight 165 lb 9.6 oz Intake & Output: Intake & Output 10/20/17 10/21/17 10/21/17 21:59 05:59 13:59 Intake Total 597 / 597 Output Total 525 / 525 325 / 325 Balance 72 / 72 -325 / -325 Weight 165 lb 9.6 oz Intake: IV 237 / 237 Sodium Chloride 0.9% 1,000 ml @ 237 / 237 100 mls/hr IV .Q10H NIRMALA Rx#: [id number] Oral 360 / 360 Output: Void Amount 525 / 525 325 / 325 Other: Meal 1/2 tuna sandwich Percent of Meal Consumed 100% # Bowel Movements 1 Exam: General: Alert, Awake, No acute Distress HEENT: EOMI, CV: RRR, No murmurs, normal s1/s2 Pulm: Clear b/l, no wheezing/rhonchi/rales Abd: soft, nontender, +BS x4 Ext: no clubbing/cyanosis, trace edema Neuro: Alert, no focal deficits, moves all extremities, Skin: warm/dry Medical - PN: Obj Da - Labs CBC & Chem 7: 10/20/17 15:45 10/21/17 03:58 Labs: Abnormal Lab Results 10/21/17 10/21/17 10/20/17 03:58 00:15 20:45 RDW Lymph # (Auto) POC Sodium Sodium 119 L* 118 L* 114 L* POC Potassium Potassium 3.2 L 2.7 L* POC Chloride Chloride 88 L 85 L 76 L Carbon Dioxide 21 L Glucose 60 L 176 H POC Glucose Osmolality POC WB Ioniz Calcium Urine Protein Amorphous Crystals 10/20/17 10/20/17 10/20/17 17:50 15:45 15:45 RDW Lymph # (Auto) POC Sodium 116 L* Sodium 115 L* POC Potassium 2.8 L* Potassium 3.1 L POC Chloride 78 L Chloride 77 L Carbon Dioxide Glucose 123 H POC Glucose 118 H Osmolality 244 L POC WB Ioniz Calcium 1.15 L Urine Protein 30 A Amorphous Crystals Few A 10/20/17 15:45 RDW 14.6 H Lymph # (Auto) 1.2 L POC Sodium Sodium POC Potassium Potassium POC Chloride Chloride Carbon Dioxide Glucose POC Glucose Osmolality POC WB Ioniz Calcium Urine Protein Amorphous Crystals Meds: Medications Acetaminophen (Tylenol) 650 mg PO Q6HP PRN PRN Reason: PAIN/FEVER > 101 Carvedilol (Coreg) 12.5 mg PO BIDCC [facility] Dextrose (Dextrose 50%) 0 ml IV UD PRN PRN Reason: Hypoglycemia Diagnostic Test (Pha) (Accu-Chek) 1 each FS [facility] Last Admin: 10/21/17 07:00 Dose: 1 each Enoxaparin Sodium (Lovenox) 40 mg SQ DAILY [facility] Famotidine (Pepcid) 20 mg PO BID [facility] Last Admin: 10/20/17 21:11 Dose: 20 mg Glucose (Insta-Glucose) 15 gm PO PRN PRN PRN Reason: Hypoglycemia Hydralazine HCl (Apresoline) 0 mg IV Q2H PRN PRN Reason: Hypertension Sodium Chloride (Sodium Chloride 0.9%) 1,000 mls @ 100 mls/hr IV .Q10H [facility] Last Admin: 10/21/17 05:50 Dose: Not Given Insulin Human Lispro (Humalog) 0 unit SQ ACHS [facility]; Protocol Last Admin: 10/21/17 07:06 Dose: Not Given Losartan Potassium (Cozaar) 50 mg PO BID [facility] Last Admin: 10/20/17 21:11 Dose: 50 mg Ondansetron HCl (Zofran) 4 mg IV Q4HP PRN PRN Reason: Nausea And Vomiting Clorazepate [ Tranxene] 3.75 Mg Tab 1 dose PO BIDP PRN PRN Reason: Anxiety Sodium Chloride (Saline Flush) 10 ml IV Q8 [facility] Last Admin: 10/21/17 06:43 Dose: 10 ml Sodium Chloride (Sodium Chloride) 1 gm PO TID [facility] Medical - PN: A/P - Time Spent With Patient Total time spent is greater than 50% in coordination of care (as documented) at patient's floor/unit and/or counseling patient: - Narrative A/P Narrative: A: *Hyponatremia acute on chronic: Thought initially 2/2 likely poor oral intake diarrhea hydrochlorothiazide, however did not seem to respond to NS as if SIADH (of which nausea is a trigger, perhaps here week long affliction), sure some degree of volume depletion although urine sodium >20 but was on HCTZ. -TSH/cortisol ok although cortisol low normal but not clinically significant at this level. -119<<115 *Hypokalemia: improved *Volume depletion: improved *Diabetes *Hypertension: Uncontrolled she has been on multiple variations over the past few months she could not say exactly what she has been on and what was switched -controlled today *Chronic kidney disease stage II *Anxiety *GERD P: -salt tabs, free water fluid restrict, serial sodiums - -Antiemetics as needed -Sided scale insulin -Continue Coreg/losartan, DC hydrochlorothiazide, - -ppx: ppx/home pepcid Medical - PN: Qual - VTE Deep Vein Thrombosis/Pulmonary Embolism Present on Admission: No
[2017-10-21] MEDS ORDERED: CARVEDILOL 12.5 MG TABLET PO SCH (08:00)
[2017-10-21] MEDS: FAMOTIDINE 20 MG TABLET PO SCH ×2 (08:45→20:43)
[2017-10-21] MEDS: SODIUM CHLORIDE 1 GM TABLET PO SCH ×3 (08:45→22:07)
[2017-10-21] MEDS: LOSARTAN 50 MG TABLET PO SCH ×2 (08:45→20:43)
[2017-10-21] MEDS: ENOXAPARIN 40 MG/0.4 ML SYRINGE SQ SCH (08:45)
[2017-10-21] MEDS: CLORAZEPATE 3.75 MG PO PRN ×2 (10:45→20:42)
[2017-10-21] MEDS ORDERED: SODIUM CHLORIDE 1 GM TABLET PO ONE ×2 (11:51→18:02)
[2017-10-21] MEDS ORDERED: MAGNESIUM SULFATE 8.12 MEQ in DEXTROSE 5% IN WATER 50 ML IV ONE (14:27)
[2017-10-22 06:19] LABS: Blood Urea Nitrogen 17 mg/dl (8-23)
--- NOTE | 2017-10-22 07:13 | Internal Med Progress Note ---
Medical - PN: Subj Patient information: Note initiated : 10/22/17 at 7:10 am Service Date, if different from initiated Date: [] Patient: Margy Teixeira 82 y/o F admitted on 10/20/17 for Nausea, Vomiting/ Hypokalemia, Hyponatremia. Chief Complaint: [] Interval history: Doing much better this morning, no nausea this morning. 10/22 no issues overnight, feeling better, no nausea/diarrhea. Review of Systems: denies headache/fever/chills/nausea/vomiting/chest or abdominal pain/cough/ dyspnea/diarrhea. Otherwise see above. - Constitutional Vitals: Vital Signs Temp Pulse Resp BP Pulse Ox 97.1 F 58 L 14 138/88 97 10/22/17 06:38 10/22/17 06:38 10/22/17 06:38 10/22/17 06:38 10/22/17 06:38 Period Temp Pulse Resp BP Sys/Cheng Pulse Ox Last 24 Hr 97.1 F-98.6 F 58-65 14-18 103-177/50-90 95-100 Intake and Output 10/21/17 10/22/17 10/22/17 21:59 05:59 13:59 Intake Total 502 / 502 360 / 360 Output Total 800 / 800 375 / 375 500 / 500 Balance -298 / -298 -15 / -15 -500 / -500 Weight 76.204 kg Intake & Output: Intake & Output 10/21/17 10/22/17 10/22/17 21:59 05:59 13:59 Intake Total 502 / 502 360 / 360 Output Total 800 / 800 375 / 375 500 / 500 Balance -298 / -298 -15 / -15 -500 / -500 Weight 76.204 kg Intake: IV 52 / 52 Oral 450 / 450 360 / 360 Output: Void Amount 800 / 800 375 / 375 500 / 500 Other: Meal Dinner Percent of Meal Consumed 100% Feeding Ability Assist with Tray Set Up Urine Appearance Clear Urine Color Dark Yellow Dark Yellow Bright Yellow Urine Odor Normal # Voids 1 1 Exam: General: Alert, Awake, No acute Distress HEENT: EOMI, CV: RRR, 1/6, normal s1/s2 Pulm: Clear b/l, no wheezing/rhonchi/rales Abd: soft, nontender, +BS x4 Ext: no clubbing/cyanosis, trace edema Neuro: Alert, no focal deficits, moves all extremities, Skin: warm/dry Medical - PN: Obj Da - Labs CBC & Chem 7: 10/20/17 15:45 10/22/17 04:12 Labs: Abnormal Lab Results 10/22/17 10/21/17 10/21/17 04:12 22:08 18:37 RDW Lymph # (Auto) POC Sodium Sodium 125 L 119 L* 122 L POC Potassium Potassium POC Chloride Chloride 94 L Carbon Dioxide Glucose POC Glucose Osmolality Calcium 8.3 L POC WB Ioniz Calcium Urine Protein Amorphous Crystals 10/21/17 10/21/17 10/21/17 13:55 10:25 03:58 RDW Lymph # (Auto) POC Sodium Sodium 120 L 118 L* 119 L* POC Potassium Potassium POC Chloride Chloride 88 L Carbon Dioxide 21 L Glucose POC Glucose Osmolality Calcium POC WB Ioniz Calcium Urine Protein Amorphous Crystals 10/21/17 10/20/17 10/20/17 00:15 20:45 17:50 RDW Lymph # (Auto) POC Sodium Sodium 118 L* 114 L* POC Potassium Potassium 3.2 L 2.7 L* POC Chloride Chloride 85 L 76 L Carbon Dioxide Glucose 60 L 176 H POC Glucose Osmolality Calcium POC WB Ioniz Calcium Urine Protein 30 A Amorphous Crystals Few A 10/20/17 10/20/17 10/20/17 15:45 15:45 15:45 RDW 14.6 H Lymph # (Auto) 1.2 L POC Sodium 116 L* Sodium 115 L* POC Potassium 2.8 L* Potassium 3.1 L POC Chloride 78 L Chloride 77 L Carbon Dioxide Glucose 123 H POC Glucose 118 H Osmolality 244 L Calcium POC WB Ioniz Calcium 1.15 L Urine Protein Amorphous Crystals Meds: Medications Acetaminophen (Tylenol) 650 mg PO Q6HP PRN PRN Reason: PAIN/FEVER > 101 Carvedilol (Coreg) 6.25 mg PO BIDCC [facility] Dextrose (Dextrose 50%) 0 ml IV UD PRN PRN Reason: Hypoglycemia Diagnostic Test (Pha) (Accu-Chek) 1 each FS ACHS [facility] Last Admin: 10/21/17 20:38 Dose: 1 each Enoxaparin Sodium (Lovenox) 40 mg SQ DAILY [facility] Last Admin: 10/21/17 08:45 Dose: 40 mg Famotidine (Pepcid) 20 mg PO BID [facility] Last Admin: 10/21/17 20:43 Dose: 20 mg Glucose (Insta-Glucose) 15 gm PO PRN PRN PRN Reason: Hypoglycemia Hydralazine HCl (Apresoline) 0 mg IV Q2H PRN PRN Reason: Hypertension Insulin Human Lispro (Humalog) 0 unit SQ ACHS [facility]; Protocol Last Admin: 10/21/17 20:39 Dose: Not Given Losartan Potassium (Cozaar) 50 mg PO BID [facility] Last Admin: 10/21/17 20:43 Dose: 50 mg Ondansetron HCl (Zofran) 4 mg IV Q4HP PRN PRN Reason: Nausea And Vomiting Last Admin: 10/21/17 07:28 Dose: 4 mg Clorazepate [ Tranxene] 3.75 Mg Tab 1 dose PO BIDP PRN PRN Reason: Anxiety Last Admin: 10/21/17 20:42 Dose: 1 dose Sodium Chloride (Saline Flush) 10 ml IV Q8 [facility] Last Admin: 10/21/17 22:07 Dose: 10 ml Sodium Chloride (Sodium Chloride) 2 gm PO TID [facility] Medical - PN: A/P - Time Spent With Patient Total time spent is greater than 50% in coordination of care (as documented) at patient's floor/unit and/or counseling patient: - Narrative A/P Narrative: A: *Hyponatremia acute on chronic: Thought initially 2/2 likely poor oral intake diarrhea hydrochlorothiazide, however did not seem to respond to NS as if SIADH (of which nausea is a trigger, perhaps here week long affliction), sure some degree of volume depletion although urine sodium >20 but was on HCTZ. -TSH/cortisol ok although cortisol low normal but not clinically significant at this level. -improving appropriately *Hypokalemia: improved *Volume depletion: improved *Diabetes *Hypertension: Uncontrolled she has been on multiple variations over the past few months she could not say exactly what she has been on and what was switched -controlled today *Chronic kidney disease stage II *Anxiety *GERD P: -salt tabs, free water fluid restrict, serial sodiums - -Antiemetics as needed -SSI -Continue Coreg/losartan, DC hydrochlorothiazide, - -ppx: ppx/home pepcid Medical - PN: Qual - VTE Deep Vein Thrombosis/Pulmonary Embolism Present on Admission: No
[2017-10-22] MEDS: INSULIN LISPRO 1 UNIT/0.01 ML UNIT SQ SCH ×4 (07:41→20:30)
[2017-10-22] MEDS: FAMOTIDINE 20 MG TABLET PO SCH ×2 (08:41→20:30)
[2017-10-22] MEDS: LOSARTAN 50 MG TABLET PO SCH ×2 (08:41→20:30)
[2017-10-22] MEDS: CARVEDILOL 6.25 MG TABLET PO SCH ×2 (08:41→17:50)
[2017-10-22] MEDS: ENOXAPARIN 40 MG/0.4 ML SYRINGE SQ SCH (08:41)
[2017-10-22] MEDS: SODIUM CHLORIDE 1 GM TABLET PO SCH ×3 (08:41→20:30)
[2017-10-22] MEDS: CLORAZEPATE 3.75 MG PO PRN (09:51)
--- NOTE | 2017-10-22 10:55 | Discharge Summary ---
Medical - DS: Prov Patient information: Note initiated : 10/22/17 at 10:52 am Service Date, if different from initiated Date: [] Patient: Margy Teixeira 82 y/o F admitted on 10/20/17 for Nausea, Vomiting/ Hypokalemia, Hyponatremia. Chief Complaint: [] Date of admission: 10/20/17 18:52 Primary care physician: Brenda Hardin Consults: 10/20/17 Consult to Physician [CONS] Stat Comment: Consulting Provider: Mamadou Velasquez Reason For Exam: Physician to Consult Medical - DS: Meds - Discharge Medications Active and Home Medications: Home Medications Losartan Potassium [Cozaar] 50 mg PO BID 06/19/15 [History Confirmed 10/20/17 Last Taken 01/13/17] metFORMIN [Glucophage] 500 mg PO QAMCC 08/13/15 [History Confirmed 10/20/17 Last Taken 01/13/17] blood sugar diagnostic strips See Dose Instructions .ROUTE .MEDSUPPLY #20 each 12/28/16 [History Confirmed 12/29/16 Last Taken 01/13/17] lancets See Dose Instructions .ROUTE .MEDSUPPLY #50 each 12/28/16 [History Confirmed 12/29/16 Last Taken Unknown] pantoprazole 20 mg tablet,delayed release 20 mg PO QPMAC 12/28/16 [History Confirmed 10/20/17 Last Taken Unknown] folic acid 1 mg PO QDAY 12/29/16 [History Confirmed 10/20/17 Last Taken 01/13/17 ] Carvedilol [Coreg] 12.5 mg PO BIDCC 06/25/17 [History Confirmed 10/20/17 Last Taken Unknown] Clorazepate [Tranxene] 3.75 mg PO BIDP PRN 06/25/17 [History Confirmed 10/20/17 Last Taken Unknown] Acetaminophen [Tylenol] 325 mg PO Q4HP PRN 10/20/17 [History Confirmed 10/20/17 Last Taken Unknown] Cranberry Conc/Ascorbic Acid [Cranberry 6,000 mg Softgel] 2 each PO BID [History Confirmed 10/20/17 Last Taken Unknown] Hydrochlorothiazide [Oretic] 25 mg PO DAILY 10/20/17 [History Confirmed Last Taken Unknown] Multivit-Min/FA/Lycopen/Lutein [Centrum Silver Tablet] 1 each PO DAILY 10/20/17 [History Confirmed 10/20/17 Last Taken Unknown] Medical - DS: Hosp Hospital course: Mr. Teixeira is a 82 year old F History of present illness: Ms. Teixeira is a 82 year old F Reports last Tuesday she went on a regular restaurant afterwards she felt like she had food poisoning she developed nausea she did not vomit but she had severe nausea and and had diarrhea for the next couple days. She felt much weaker she had poor oral intake since then heard diarrhea since has improved however she is continued to have nausea and is continued to be weak and continued to have poor oral intake. She went to [facility] today. She received some anti-medics Zofran did feel better. Laboratory work was done which showed a hyponatremia worse than her baseline she was ~115. She does feel better after the medication her daughter in law did say that she seemed weaker and more lethargic prior but is waking up more. Next She does have hypertension and has had a change in blood pressure medication in the past 3 months. Sounds like she has been on multiple medications. She did see a motor man several months ago who stopped some medications I believe at least clonidine among others and started on another medication. However she did develop some swelling and that medication was switched to hydrochlorothiazide. Thus she has been on hydrochlorothiazide for several months. In the ER she is noted to have a sodium of 115 potassium 3.1 chloride 77. Review of systems positive for nausea weakness malaise negative for headache fever chills chest pain coughing shortness of breath stomach pain she had episodes of diarrhea but has since resolved the past couple days remaining 10 point review of system review negative COURSE: Discharge diagnosis: Hyponatremia hypokalemia volume depletion pretension Secondary discharge diagnosis: Diabetes chronic kidney disease stage II anxiety GERD - Time Spent with Patient Total time spent providing and/or coordinating discharge services: Greater than 30 minutes Medical - DS: Exam - Constitutional Vitals: Vital Signs Temp Pulse Pulse Resp BP BP Pulse Ox 10/22/17 07:46 57 L 10/22/17 06:38 97.1 F 58 L 14 138/88 97 10/22/17 06:01 177/86 97 10/22/17 06:00 172/88 100 10/22/17 04:02 98.6 F 18 160/77 95 10/22/17 02:01 17 103/52 96 10/22/17 00:01 18 117/57 96 10/21/17 22:01 17 103/50 10/21/17 20:26 98.4 F 18 146/70 96 10/21/17 16:00 97.2 F 14 120/65 98 10/21/17 12:02 97.6 F 16 131/90 95 10/21/17 11:59 128/79 10/21/17 11:11 141/86 Intake and Output 10/21/17 10/22/17 10/22/17 21:59 05:59 13:59 Intake Total 502 / 502 360 / 360 300 / 300 Output Total 800 / 800 375 / 375 800 / 800 Balance -298 / -298 -15 / -15 -500 / -500 Intake: IV 52 / 52 Oral 450 / 450 360 / 360 300 / 300 Output: Void Amount 800 / 800 375 / 375 800 / 800 Other: Meal Dinner Breakfast Percent of Meal Consumed 100% 100% Feeding Ability Assist with Tray Set Up Independent Urine Appearance Clear Clear Urine Color Dark Yellow Dark Yellow Dark Yellow Urine Odor Normal Stool Size Moderate Stool Color Brown Stool Consistency Soft # Voids 1 1 # Bowel Movements 1 Weight 76.204 kg Medical - DS: Data Labs on day of discharge: Labs from last 24 hours 10/22/17 10/21/17 10/21/17 04:12 22:08 18:37 Sodium 125 L 119 L* 122 L Potassium 4.3 Chloride 94 L Carbon Dioxide 22 Anion Gap 9.0 BUN 17 Creatinine 0.8 GFR Calculation 68 Glucose 91 Calcium 8.3 L Magnesium 10/21/17 10/21/17 10/21/17 13:55 10:25 10:25 Sodium 120 L 118 L* Potassium Chloride Carbon Dioxide Anion Gap BUN Creatinine GFR Calculation Glucose Calcium Magnesium 1.9 Medical - DS: A/P - Patient/Caregiver Discharge Instructions Activity: increase activity as tolerated Diet: Regular Diet (Avoid low-salt diet) - Follow up Plan Follow up with: Brenda Hardin MD [Primary Care Provider] - Disposition: Home Health Service Prognosis: Fair Rehab Potential: Good Medical - DS: Qual - VTE Deep Vein Thrombosis/Pulmonary Embolism Present on Admission: No
[2017-10-22] MEDS ORDERED: LABETALOL 5 MG/ML ML IV PRN (12:51)
[2017-10-22] MEDS ORDERED: ENALAPRILAT 1.25 MG/ML VIAL IV PRN (12:51)
[2017-10-22] MEDS: 0.9 % SODIUM CHLORIDE 10 ML SYRINGE IV SCH ×3 (13:07→20:30)
[2017-10-22] MEDS: hydrALAZINE 25 MG TABLET PO SCH ×2 (16:30→20:30)
[2017-10-23 05:25] LABS: Blood Urea Nitrogen 14 mg/dl (8-23)
[2017-10-23] MEDS: 0.9 % SODIUM CHLORIDE 10 ML SYRINGE IV SCH ×3 (06:08→23:12)
--- NOTE | 2017-10-23 07:14 | Internal Med Progress Note ---
Medical - PN: Subj Patient information: Note initiated : 10/23/17 at 7:10 am Service Date, if different from initiated Date: [] Patient: Margy Teixeira 82 y/o F admitted on 10/20/17 for Nausea, Vomiting/ Hypokalemia, Hyponatremia. Chief Complaint: [] Interval history: Doing much better this morning, no nausea this morning. 10/22 no issues overnight, feeling better, no nausea/diarrhea. 10/23 daughter at bedside, patient states feeling fine. Daughter asking about support options mentioned home health care. Review of Systems: denies headache/fever/chills/nausea/vomiting/chest or abdominal pain/cough/ dyspnea/diarrhea. Otherwise see above. - Constitutional Vitals: Vital Signs Temp Pulse Resp BP Pulse Ox 98.4 F 57 L 18 159/74 96 10/23/17 04:02 10/22/17 07:46 10/23/17 04:02 10/23/17 04:02 10/23/17 04:02 Period Temp Pulse Resp BP Sys/Cheng Pulse Ox Last 24 Hr 97.3 F-98.7 F 57 14-18 114-222/60-140 95-100 Intake and Output 10/22/17 10/23/17 10/23/17 21:59 05:59 13:59 Intake Total 660 / 660 400 / 400 Output Total 1200 / 1200 975 / 975 Balance -540 / -540 -575 / -575 Weight 75.206 kg Intake & Output: Intake & Output 10/22/17 10/23/17 10/23/17 21:59 05:59 13:59 Intake Total 660 / 660 400 / 400 Output Total 1200 / 1200 975 / 975 Balance -540 / -540 -575 / -575 Weight 75.206 kg Intake: Oral 660 / 660 400 / 400 Output: Void Amount 1200 / 1200 975 / 975 Other: Meal Dinner Ensure & pudding Percent of Meal Consumed 75% 100% Feeding Ability Assist with Tray Set Up Independent Urine Appearance Clear Urine Color Bright Yellow Dark Yellow Urine Odor Normal # Voids 1 Exam: General: Alert, Awake, No acute Distress HEENT: EOMI, CV: RRR, 1/6, normal s1/s2 Pulm: Clear b/l, no wheezing/rhonchi/rales Abd: soft, nontender, +BS x4 Ext: no clubbing/cyanosis, no edema Neuro: Alert, no focal deficits, moves all extremities, Skin: warm/dry Medical - PN: Obj Da - Labs CBC & Chem 7: 10/20/17 15:45 10/23/17 04:00 Labs: Abnormal Lab Results 10/23/17 10/22/17 10/22/17 04:00 16:25 04:12 RDW Lymph # (Auto) POC Sodium Sodium 125 L 123 L 125 L POC Potassium Potassium POC Chloride Chloride 92 L 94 L Carbon Dioxide Glucose 111 H POC Glucose Osmolality Calcium 8.3 L POC WB Ioniz Calcium Urine Protein Amorphous Crystals 10/21/17 10/21/17 10/21/17 22:08 18:37 13:55 RDW Lymph # (Auto) POC Sodium Sodium 119 L* 122 L 120 L POC Potassium Potassium POC Chloride Chloride Carbon Dioxide Glucose POC Glucose Osmolality Calcium POC WB Ioniz Calcium Urine Protein Amorphous Crystals 10/21/17 10/21/17 10/21/17 10:25 03:58 00:15 RDW Lymph # (Auto) POC Sodium Sodium 118 L* 119 L* 118 L* POC Potassium Potassium 3.2 L POC Chloride Chloride 88 L 85 L Carbon Dioxide 21 L Glucose 60 L POC Glucose Osmolality Calcium POC WB Ioniz Calcium Urine Protein Amorphous Crystals 10/20/17 10/20/17 10/20/17 20:45 17:50 15:45 RDW Lymph # (Auto) POC Sodium Sodium 114 L* POC Potassium Potassium 2.7 L* POC Chloride Chloride 76 L Carbon Dioxide Glucose 176 H POC Glucose Osmolality 244 L Calcium POC WB Ioniz Calcium Urine Protein 30 A Amorphous Crystals Few A 10/20/17 10/20/17 15:45 15:45 RDW 14.6 H Lymph # (Auto) 1.2 L POC Sodium 116 L* Sodium 115 L* POC Potassium 2.8 L* Potassium 3.1 L POC Chloride 78 L Chloride 77 L Carbon Dioxide Glucose 123 H POC Glucose 118 H Osmolality Calcium POC WB Ioniz Calcium 1.15 L Urine Protein Amorphous Crystals Meds: Medications Acetaminophen (Tylenol) 650 mg PO Q6HP PRN PRN Reason: PAIN/FEVER > 101 Carvedilol (Coreg) 6.25 mg PO BIDCC [facility] Last Admin: 10/22/17 17:50 Dose: 6.25 mg Dextrose (Dextrose 50%) 0 ml IV UD PRN PRN Reason: Hypoglycemia Diagnostic Test (Pha) (Accu-Chek) 1 each FS ACHS [facility] Last Admin: 10/22/17 20:30 Dose: 1 each Enalaprilat (Vasotec) 0 mg IV Q6HP PRN PRN Reason: Hypertension Last Admin: 10/22/17 13:07 Dose: 1.25 mg Enoxaparin Sodium (Lovenox) 40 mg SQ DAILY [facility] Last Admin: 10/22/17 08:41 Dose: 40 mg Famotidine (Pepcid) 20 mg PO BID [facility] Last Admin: 10/22/17 20:30 Dose: 20 mg Glucose (Insta-Glucose) 15 gm PO PRN PRN PRN Reason: Hypoglycemia Hydralazine HCl (Apresoline) 0 mg IV Q2H PRN PRN Reason: Hypertension Hydralazine HCl (Apresoline) 25 mg PO TID [facility] Last Admin: 10/22/17 20:30 Dose: 25 mg Insulin Human Lispro (Humalog) 0 unit SQ [facility]; Protocol Last Admin: 10/22/17 20:30 Dose: Not Given Labetalol HCl (Trandate) 0 mg IV Q2H PRN PRN Reason: Hypertension Losartan Potassium (Cozaar) 50 mg PO BID [facility] Last Admin: 10/22/17 20:30 Dose: 50 mg Ondansetron HCl (Zofran) 4 mg IV Q4HP PRN PRN Reason: Nausea And Vomiting Last Admin: 10/21/17 07:28 Dose: 4 mg Clorazepate [ Tranxene] 3.75 Mg Tab 1 dose PO BIDP PRN PRN Reason: Anxiety Last Admin: 10/22/17 09:51 Dose: 1 dose Sodium Chloride (Saline Flush) 10 ml IV Q8 [facility] Last Admin: 10/23/17 06:08 Dose: 10 ml Sodium Chloride (Sodium Chloride) 2 gm PO TID [facility] Last Admin: 10/22/17 20:30 Dose: 2 gm Medical - PN: A/P - Time Spent With Patient Total time spent is greater than 50% in coordination of care (as documented) at patient's floor/unit and/or counseling patient: - Narrative A/P Narrative: A: *Hyponatremia acute on chronic: Thought initially 2/2 likely poor oral intake diarrhea hydrochlorothiazide, however did not seem to respond to NS as if SIADH (of which nausea is a trigger, perhaps here week long affliction), sure some degree of volume depletion although urine sodium >20 but was on HCTZ. -TSH/cortisol ok although cortisol low normal but not clinically significant at this level. -improving appropriately *Hypokalemia: resolved *Volume depletion: resolved *Diabetes: *Hypertension: Uncontrolled she has been on multiple variations over the past few months she could not say exactly what she has been on and what was switched -better with addition of hydralazine *Chronic kidney disease stage II *Anxiety *GERD P: -salt tabs, free water fluid restrict, serial sodiums - -Antiemetics as needed -SSI -Continue Coreg/losartan, DC hydrochlorothiazide, added hydralazine -CM for HHC -ppx: ppx/home pepcid Medical - PN: Qual - VTE Deep Vein Thrombosis/Pulmonary Embolism Present on Admission: No
[2017-10-23] MEDS: CLORAZEPATE 3.75 MG PO PRN ×2 (07:21→20:42)
[2017-10-23] MEDS: INSULIN LISPRO 1 UNIT/0.01 ML UNIT SQ SCH ×4 (07:26→20:42)
[2017-10-23] MEDS: LOSARTAN 50 MG TABLET PO SCH ×2 (08:52→20:42)
[2017-10-23] MEDS: hydrALAZINE 25 MG TABLET PO SCH ×3 (08:52→20:42)
[2017-10-23] MEDS: ENOXAPARIN 40 MG/0.4 ML SYRINGE SQ SCH (08:52)
[2017-10-23] MEDS: SODIUM CHLORIDE 1 GM TABLET PO SCH ×3 (08:52→20:42)
[2017-10-23] MEDS: FAMOTIDINE 20 MG TABLET PO SCH ×2 (08:52→20:42)
[2017-10-23] MEDS: CARVEDILOL 6.25 MG TABLET PO SCH (08:52)
--- NOTE | 2017-10-23 10:54 | Discharge Summary ---
Medical - DS: Prov Patient information: Note initiated : 10/23/17 at 10:51 am Service Date, if different from initiated Date: [] Patient: Margy Teixeira 82 y/o F admitted on 10/20/17 for Nausea, Vomiting/ Hypokalemia, Hyponatremia. Chief Complaint: [] Date of admission: 10/20/17 18:52 Discharge date: 10/24/17 Primary care physician: Brenda Hardin Consults: 10/20/17 Consult to Physician [CONS] Stat Comment: Consulting Provider: Mamadou Velasquez Reason For Exam: Physician to Consult Medical - DS: Meds - Discharge Medications Prescriptions: hydrALAZINE [Apresoline] 25 mg PO TID #90 tab Sodium Chloride 1 gm PO DAILY #30 tab Active and Home Medications: Home Medications Losartan Potassium [Cozaar] 50 mg PO BID 06/19/15 [History Confirmed 10/20/17 Last Taken 01/13/17] metFORMIN [Glucophage] 500 mg PO QAC 08/13/15 [History Confirmed 10/20/17 Last Taken 01/13/17] blood sugar diagnostic strips See Dose Instructions .ROUTE .MEDSUPPLY #20 each 12/28/16 [History Confirmed 12/29/16 Last Taken 01/13/17] lancets See Dose Instructions .ROUTE .MEDSUPPLY #50 each 12/28/16 [History Confirmed 12/29/16 Last Taken Unknown] pantoprazole 20 mg tablet,delayed release 20 mg PO QPMAC 12/28/16 [History Confirmed 10/20/17 Last Taken Unknown] folic acid 1 mg PO QDAY 12/29/16 [History Confirmed 10/20/17 Last Taken 01/13/17 ] Carvedilol [Coreg] 12.5 mg PO BIDCC 06/25/17 [History Confirmed 10/20/17 Last Taken Unknown] Clorazepate [Tranxene] 3.75 mg PO BIDP PRN 06/25/17 [History Confirmed 10/20/17 Last Taken Unknown] Acetaminophen [Tylenol] 325 mg PO Q4HP PRN 10/20/17 [History Confirmed 10/20/17 Last Taken Unknown] Cranberry Conc/Ascorbic Acid [Cranberry 6,000 mg Softgel] 2 each PO BID [History Confirmed 10/20/17 Last Taken Unknown] Multivit-Min/FA/Lycopen/Lutein [Centrum Silver Tablet] 1 each PO DAILY 10/20/17 [History Confirmed 10/20/17 Last Taken Unknown] Medical - DS: Hosp Hospital course: Mr. Teixeira is a 82 year old F Ms. Teixeira is a 82 year old F Reports last Tuesday she went on a regular restaurant afterwards she felt like she had food poisoning she developed nausea she did not vomit but she had severe nausea and and had diarrhea for the next couple days. She felt much weaker she had poor oral intake since then heard diarrhea since has improved however she is continued to have nausea and is continued to be weak and continued to have poor oral intake. She went to [facility] today. She received some anti-medics Zofran did feel better. Laboratory work was done which showed a hyponatremia worse than her baseline she was ~115. She does feel better after the medication her daughter in law did say that she seemed weaker and more lethargic prior but is waking up more. Next She does have hypertension and has had a change in blood pressure medication in the past 3 months. Sounds like she has been on multiple medications. She did see a bear keeper several months ago who stopped some medications I believe at least clonidine among others and started on another medication. However she did develop some swelling and that medication was switched to hydrochlorothiazide. Thus she has been on hydrochlorothiazide for several months. In the ER she is noted to have a sodium of 115 potassium 3.1 chloride 77. 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 She was put on fluid restrict salt tabs with improvement in her sodium. Also had hypokalemia which resolved supplementation. Her blood pressure seem to be uncontrolled and she came in. I continued her on her home Coreg and losartan initially however she needed increased coverage and thus added hydralazine. Her hydrochlorothiazide was DC'd from admission because of the hyponatremia. Her sodium appears to be near baseline, which is chronically low. Patient feeling much better doing well and stable for discharge. Discharge diagnosis: Hyponatremia - Time Spent with Patient Total time spent providing and/or coordinating discharge services: Greater than 30 minutes Medical - DS: Exam - Constitutional Vitals: Vital Signs Temp Pulse Resp BP BP BP BP 10/23/17 07:42 65 10/23/17 07:20 97.5 F 18 148/85 10/23/17 04:02 98.4 F 18 159/74 10/23/17 02:01 127/60 10/23/17 00:02 97.8 F 16 114/67 10/22/17 22:02 133/74 10/22/17 20:01 98.4 F 17 175/90 10/22/17 18:02 159/77 10/22/17 16:00 97.3 F 14 183/85 10/22/17 14:02 151/62 10/22/17 14:00 16 151/62 10/22/17 13:47 157/66 10/22/17 13:32 146/66 10/22/17 13:23 173/73 10/22/17 13:17 180/140 10/22/17 13:08 190/74 10/22/17 12:49 214/90 10/22/17 12:28 210/84 10/22/17 12:22 222/89 10/22/17 12:18 204/103 10/22/17 12:00 98.7 F 16 210/84 Pulse Ox 10/23/17 07:42 10/23/17 07:20 98 10/23/17 04:02 96 10/23/17 02:01 10/23/17 00:02 95 10/22/17 22:02 10/22/17 20:01 96 10/22/17 18:02 10/22/17 16:00 100 10/22/17 14:02 10/22/17 14:00 10/22/17 13:47 10/22/17 13:32 10/22/17 13:23 10/22/17 13:17 10/22/17 13:08 10/22/17 12:49 10/22/17 12:28 10/22/17 12:22 10/22/17 12:18 10/22/17 12:00 98 Intake and Output 10/22/17 10/23/17 10/23/17 21:59 05:59 13:59 Intake Total 660 / 660 400 / 400 Output Total 1200 / 1200 975 / 975 376 / 376 Balance -540 / -540 -575 / -575 -376 / -376 Intake: Oral 660 / 660 400 / 400 Output: Void Amount 1200 / 1200 975 / 975 375 / 375 # of times incontinent of urine Other: Meal Dinner Ensure & pudding Percent of Meal Consumed 75% 100% Feeding Ability Assist with Tray Set Up Independent Urine Appearance Clear Urine Color Bright Yellow Dark Yellow Urine Odor Normal # Voids 1 Weight 75.206 kg Medical - DS: Data Labs on day of discharge: Labs from last 24 hours 10/23/17 10/23/17 10/22/17 04:00 04:00 16:25 Sodium 125 L 123 L Potassium 4.1 Chloride 92 L Carbon Dioxide 23 Anion Gap 10.0 BUN 14 Creatinine 0.7 GFR Calculation 80 Glucose 111 H Calcium 8.6 Procalcitonin < 0.05 Medical - DS: A/P - Patient/Caregiver Discharge Instructions Activity: increase activity as tolerated Diet: Regular Diet (add salt to one meal a day.) Prescriptions: hydrALAZINE [Apresoline] 25 mg PO TID #90 tab Other Amb Orders: Basic Metabolic Panel Time Frame: 1 Week, Location: None Selected - Follow up Plan Follow up with: Brenda Hardin MD [Primary Care Provider] - 10/28/17 11:45 am Disposition: Home Health Service Prognosis: Fair Rehab Potential: Fair Medical - DS: Qual - VTE Deep Vein Thrombosis/Pulmonary Embolism Present on Admission: No
[2017-10-24] MEDS: 0.9 % SODIUM CHLORIDE 10 ML SYRINGE IV SCH (05:35)
[2017-10-24 05:58] LABS: Blood Urea Nitrogen 14 mg/dl (8-23)
[2017-10-24] MEDS: SODIUM CHLORIDE 1 GM TABLET PO SCH (08:17)
[2017-10-24] MEDS: ENOXAPARIN 40 MG/0.4 ML SYRINGE SQ SCH (08:17)
[2017-10-24] MEDS: LOSARTAN 50 MG TABLET PO SCH (08:18)
[2017-10-24] MEDS: hydrALAZINE 25 MG TABLET PO SCH (08:18)
[2017-10-24] MEDS: INSULIN LISPRO 1 UNIT/0.01 ML UNIT SQ SCH (08:18)
[2017-10-24] MEDS: CARVEDILOL 6.25 MG TABLET PO SCH (08:18)
[2017-10-24] MEDS: FAMOTIDINE 20 MG TABLET PO SCH (08:18)
== END 2017-10-24 10:40 | disposition home health service (06) | DRG 641 ==
LOC: ED 15:05 → ICU 18:52
PROVIDERS: ADMIT Internal Medicine; ATTEND Internal Medicine